=== PATIENT | female | born 2000 | race Two or more races ===

== ENCOUNTER 2024-04-04 10:04 | Inpatient (IN) | payer MEDICAID, SELFPAY ==
[2024-04-04] VITALS (22 sets, daily range): BP systolic 99–148; BP diastolic 56–82; PULSE 63–101; RESP 16–21; TEMP 36.4–37.5; O2SAT 98–100; BMI 29.1
--- NOTE | 2024-04-04 07:47 | ESHP_ITS ---
RE: RUKHSANA BENDER : 2000 DATE OF ADMISSION: 04/04/2024 HISTORY OF PRESENT ILLNESS: This is a 23-year-old 2 para 1-0-0-1 with intrauterine at 39 weeks and 1 day on 04/04/2024, who presents for repeat delivery. The patient denies any leaking or bleeding. She reports normal movement. Her care was complicated by a short interpregnancy interval as well as chlamydia infection in 10/2023. ALLERGIES: NO KNOWN DRUG ALLERGIES. MEDICATIONS: * multivitamin 1 p.o. daily. * Ferrous sulfate 325 mg 1 p.o. b.i.d. PAST MEDICAL HISTORY: Pyelonephritis in her prior at 39 weeks, chlamydia cervicitis in 10/2023. SOCIAL HISTORY: She denies any alcohol, drug use or smoking. FAMILY HISTORY: Denies. OBSTETRIC HISTORY: 01/12/2023, 40 weeks, delivery, 6 pound 10 ounce male, no complications. REVIEW OF SYSTEMS: She denies any chest pain, palpitations, cough, fever, shortness of breath or lower extremity pain. PHYSICAL EXAMINATION: VITAL SIGNS: Blood pressure 127/70, heart rate 88, respirations 18, temperature 98.2, and weight 168 pounds. HEENT: Oropharynx and sclerae are clear. LUNGS: Clear to auscultation bilaterally. HEART: Regular rate and rhythm. ABDOMEN: Gravid term size. Old Pfannenstiel scar noted. EXTREMITIES: Nontender. SKIN: No gross rashes or lesions. NEUROLOGIC: No focal deficits. ASSESSMENT: Intrauterine at 39 weeks and 1 day, previous delivery, elects repeat delivery. PLAN: Repeat delivery. Informed consent was obtained. The patient was made aware of the risks, complications, alternatives, and benefits of the proposed procedure and she agrees. DT: 12:19:18 TT: 15:45:00 Ref: [id number] - TID: [id number] MTDD
[2024-04-04 11:01] LABS: Basophils % (Auto) 0 % (0-2.5); Eosinophils % (Auto) 1 % (0-10); Hematocrit 30.7 % (36.0-46.0); Hemoglobin 9.6 g/dL (12.0-16.0); Immature Granulocytes % (Auto) 0 % (0-0); Immature Granulocytes Auto 0.02 Thou/mm3 (0.00-0.00); Lymphocytes # (Auto) 2.2 Thou/mm3 (1.0-4.8); Lymphocytes % (Auto) 31 % (10-50); Mean Corpuscular HGB Conc 31.3 g/dl (31.0-37.0); Mean Corpuscular Hemoglobin 22.6 pg (25.0-35.0); Mean Corpuscular Volume 72 fL (80-100); Monocytes # (Auto) 0.5 Thou/mm3 (0.0-0.8); Monocytes % (Auto) 7 % (0-12); Neutrophils # (Auto) 4.3 Thou/mm3 (1.8-7.7); Neutrophils % (Auto) 61 % (37-80); Nucleated Red Blood Cell % 0 /100 WBC (0); Platelet Count 296 Thou/mm3 (140-440); RDW Standard Deviation 46.8 fL (36.4-46.3); Red Blood Count 4.24 Miln/mm3 (4.00-5.20); White Blood Count 7.1 Thou/mm3 (3.6-11.0)
[2024-04-04 11:46] LABS: Syphilis Nonreactive (Nonreactive)
[2024-04-04] MEDS: ceFAZolin/D5W 2 GM IV 2 GM/100 ML BAG IV (12:13)
[2024-04-04] MEDS: FAMOTIDINE INJ 10 MG/ML VIAL 2 ML 20 MG IV (12:13)
[2024-04-04] MEDS: CITRIC ACID/SODIUM CITR 15 ML UDC (BICITRA) 30 ML PO (12:13)
--- NOTE | 2024-04-04 13:24 | PD.LDDS ---
DS: Providers Provider Date of admission: 04/04/24 10:04 Primary care physician: Andrzej Larson MD Admitting Provider: Kahlil Arguelles MD Attending Provider on Admission: Kahlil Arguelles MD Attending Provider on DC: Kahlil Arguelles MD Discharging Provider: Kahlil Arguelles MD DS: Diagnosis Problem List Completed Was Problem List Reviewed/Reconciled?: Yes Summary/Hosp Course Peripartum Data Procedures: Procedures Operation Date: 04/04/24 12:45 <No data on this case meets the specified criteria> Time Spent with Patient Time attestation: Total time spent providing and/or coordinating discharge services: Exam Vital Signs Temp Pulse Resp BP Pulse Ox 98.3 F 94 16 111/80 98 04/04/24 10:21 04/04/24 12:20 04/04/24 10:21 04/04/24 12:20 04/04/24 10:21 Discharge Plan Plan Patient Disposition: HOME (Self Care) Patient condition on transfer: Stable Prescriptions/Referrals Prescriptions/Med Rec: No Action ibuprofen 600 mg tablet 600 mg PO Q6H PRN (Reason: pain) Qty: 30 0RF cefpodoxime 200 mg tablet 200 mg PO BID Qty: 10 0RF Rx Instructions: must administer with a meal/food hydrocodone-acetaminophen 5-325 mg tablet 1 tab PO Q6H MDD 4 PRN (Reason: pain) Qty: 20 0RF ferrous sulfate 325 mg (65 mg iron) tablet 325 mg PO BID Qty: 60 1RF vit-iron fum-folic ac [ Vitamin with Minerals] 28 mg iron- 800 mcg Tablet 1 tab PO QDAY Referrals: Andrzej Larson MD [Primary Care Provider] - Patient/Caregiver Discharge Instructions Discharge Activity: activity as tolerated Other Discharge Activity Instructions:: Follow up office 1 weeks. Education Materials: C Section Dc Print Language: Malawian Stand Alone Forms: Saskia Award Info., Patient Portal Info Letter Planned Discharge Date 04/06/24
[2024-04-04] MEDS: OXYTOCIN in NS 20 units 20 UNIT/1,000 ML BAG 125 UNIT IV ×2 (13:45→23:11)
[2024-04-04] MEDS: ONDANSETRON INJ 2 MG/ML INJ 2 ML 4 MG IV (15:20)
[2024-04-04 19:02] LABS: Basophils % (Auto) 0 % (0-2.5); Eosinophils % (Auto) 0 % (0-10); Hematocrit 29.5 % (36.0-46.0); Hemoglobin 9.2 g/dL (12.0-16.0); Immature Granulocytes % (Auto) 0 % (0-0); Immature Granulocytes Auto 0.06 Thou/mm3 (0.00-0.00); Lymphocytes # (Auto) 0.9 Thou/mm3 (1.0-4.8); Lymphocytes % (Auto) 6 % (10-50); Mean Corpuscular HGB Conc 31.2 g/dl (31.0-37.0); Mean Corpuscular Hemoglobin 22.5 pg (25.0-35.0); Mean Corpuscular Volume 72 fL (80-100); Monocytes # (Auto) 0.1 Thou/mm3 (0.0-0.8); Monocytes % (Auto) 1 % (0-12); Neutrophils # (Auto) 12.4 Thou/mm3 (1.8-7.7); Neutrophils % (Auto) 92 % (37-80); Nucleated Red Blood Cell % 0 /100 WBC (0); Platelet Count 265 Thou/mm3 (140-440); RDW Standard Deviation 47.3 fL (36.4-46.3); Red Blood Count 4.08 Miln/mm3 (4.00-5.20); White Blood Count 13.4 Thou/mm3 (3.6-11.0)
[2024-04-04] MEDS: SODIUM CHLORIDE 0.9% 500 ML 500 ML 999 ML IV (19:13)
--- NOTE | 2024-04-04 19:21 | PD.LDDELS ---
Data (Johnson) Data : 2 Para: 1 Term: 1 : 0 : 0 Delivery Data (Johnson) Labor Data ROM Date: 04/04/24 ROM Time: 12:57 Rupture Type: AROM Amniotic Fluid: Clear Delivery Data EDC: 04/10/24 EDC calculated by:: LMP/early US confirmation Labor Onset Stage 1 Date: 04/04/24 Labor Onset Stage 1 Time: 12:57 Labor Onset Stage 2 Date: 04/04/24 Labor Onset Stage 2 Time: 12:57 Delivery Date: 04/04/24 Delivery Time: 12:57 Gestational age (weeks): 39 Gestational age (days): 1 Placenta Delivery Date: 04/04/24 Placenta Delivery Time: 12:58 Delivered by: Kahlil Arguelles Delivery nurse: Beverly Weiner Other staff at delivery: [employer] Other staff at delivery: Anesthesiologist Other staff at delivery: [employer] garay Delivery Method Delivery: Delivery Type: Repeat Presentation: Vertex Position: OA Anesthesia Type Primary Anesthesia: Spinal Delivery Room Medications Other Intrapartum Medications: Yes Placenta Placenta Delivery: Manual Placenta Cultures Obtained: No Placenta Sent for Examination: No Cord Sample: Cord Blood Obtained EBL Estimated blood loss (ml): 700 Umbilical Cord Umbilical Vessels: 3 Nuchal Cord: None Body Cord: None Additional Procedures None Complications Complications: None Data (Johnson) Data Gender: Male Weight Grams: 3225 1 Minute Total: 8 5 Minute Total: 9
--- NOTE | 2024-04-04 21:29 | ESOP_ITS ---
RE: RUKHSANA BENDER : 2000 DATE OF OPERATION: 04/04/2024 PREOPERATIVE DIAGNOSES: Intrauterine at 39 weeks and 1 day. Previous delivery. Elects to repeat delivery. POSTOPERATIVE DIAGNOSES: Intrauterine at 39 weeks and 1 day. Previous delivery. Elects to repeat delivery. Endometriosis. PROCEDURE PERFORMED: Repeat low transverse section via Pfannenstiel skin incision. SURGEON: Kahlil Arguelles DO AUTOMOTIVE REFINISHER: MAXINE Pierre ANESTHESIA: Spinal. ANESTHESIOLOGIST: Skip Patton CRNA ESTIMATED BLOOD LOSS: 700 mL. COMPLICATIONS: None. COUNTS: Correct. PATHOLOGY: None. FINDINGS: A live male , cephalic presentation, clear amniotic fluid, Apgars, see RN notes, placenta removed, completely intact. Superficial endometriotic implants on both ovaries and both posterior uterosacral ligaments. The uterus was initially atonic, but responded to uterotonics. DESCRIPTION OF PROCEDURE: After appropriate informed consent was obtained and the patient was made aware of the risks, complications, alternatives and benefits of the proposed procedure, she was taken to the operating room where she underwent induction of general anesthesia. She was placed in the dorsal supine position. She was prepped and draped in usual sterile fashion. A timeout was performed and a Pfannenstiel skin incision was made with the scalpel, carried through to the underlying layer of fascia with the Bovie. The fascia was nicked in the midline. The incision was extended bilaterally with the scalpel. The Bovie was then used and the subcutaneous tissue was incised and the fascia entered sharply with the Bovie. The fascia was extended bilaterally with the Bovie. The inferior aspect of the fascia incision was grasped with Emilia clamps and elevated. The underlying rectus muscle was dissected off with the Bovie. The superior aspect of the fascial incision was grasped with Emilia clamps and elevated. The underlying rectus muscles were dissected off with the Bovie. The rectus muscles were in the midline. The peritoneum identified between two Sharp clamps and entered sharply with the Metzenbaum scissors. The incision was extended superiorly and inferiorly with good visualization of the bladder. Bladder blade was then inserted. The vesicouterine peritoneum was incised transversely and the bladder flap created digitally. The bladder blade was inserted in the lower uterine segment and incised in a transverse fashion with scalpel. The incision was extended bilaterally digitally. The infant's head delivered. The mouth and nose suctioned with bulb suction. Shoulder and body delivered atraumatically. The cord was clamped and cut. The infant was sent off to awaiting pediatric staff. Cord blood and gases were sent. Placenta was then removed manually. The uterus was exteriorized and cleared of all clots and debris. The uterine incision was repaired with #1-0 chromic catgut suture in a running locking fashion. A second layer of the same suture was used to imbricate the first layer and obtained excellent hemostasis. The vesicouterine peritoneum was closed with 2-0 chromic catgut suture in a running fashion. The muscle was closed with 0 chromic. The fascia was closed with 0 Vicryl beginning at each angle and ending at center in a running fashion. Subcutaneous tissue was irrigated with normal saline solution. The skin was closed with 4-0 Monocryl. A Dermabond Prineo dressing was applied. A sterile pressure dressing was applied. She tolerated the procedure well. Counts were correct. We discussed with the patient the nature of her condition, intraoperative findings, expectations for recovery. All questions answered. DT: 13:30:21 TT: 21:27:00 Ref: [id number] - TID: [id number]
[2024-04-05] MEDS: KETOROLAC INJ 30 MG/ML VIAL IVP ×2 (01:16→15:46)
[2024-04-05 05:24] VITALS: BP 110/73; PULSE 67; RESP 16; TEMP 36.8; O2SAT 97
--- NOTE | 2024-04-05 07:24 | PC.NURSE ---
Dr. Arguelles at bedside, poc explained to pt all questions and concerns addressed.
--- NOTE | 2024-04-05 07:52 | ESPR_ITS ---
RE: RUKHSANA BENDER : 2000 DATE OF SERVICE: 04/05/2024 SUBJECTIVE: Postoperative day #1, the patient denies any problems or complaints. She is voiding. She is ambulating. She is tolerating diet. She is passing flatus. She denies any excessive vaginal bleeding. She denies any dizziness or lightheadedness. She denies any chest pain, palpitations, shortness of breath, or lower extremity pain. She denies any depression or anxiety. OBJECTIVE: Vital Signs: Blood pressure 110/73, heart rate 67, respirations 16, temperature 98.3, pulse oximetry 97% on room air. Lungs: Clear to auscultation bilaterally. Heart: Regular rate and rhythm. Abdomen: Dressing dry and intact. Fundus is firm. Extremities: Nontender. LABORATORY DATA: Hemoglobin pre-delivery is 9.6, post delivery 9.2. ASSESSMENT: Postoperative day #1, status post delivery. PLAN: Remove dressing, discontinue IV, encourage ambulation, support, possible discharge home tomorrow. DT: 07:27:43 TT: 07:51:00 Ref: [id number] - TID: [id number]
[2024-04-05 08:12] VITALS: BP 111/68; PULSE 78; RESP 18; TEMP 36.8; O2SAT 99
[2024-04-05 11:30] VITALS: BP 100/67; PULSE 74; RESP 16; TEMP 36.8; O2SAT 99
[2024-04-05 15:30] VITALS: BP 95/57; PULSE 81; RESP 18; TEMP 36.8; O2SAT 99
[2024-04-05 20:18] VITALS: BP 109/69; PULSE 87; RESP 18; TEMP 36.8; O2SAT 97
[2024-04-06] VITALS: BP 109/70; PULSE 87; RESP 16; TEMP 36.8; O2SAT 98
[2024-04-06] MEDS: HYDROcodone/APAP 5/325 TABLET 1 TAB PO (04:40)
[2024-04-06] MEDS: Milk Of Magnesia Susp 30 ML UDC PO (04:40)
--- NOTE | 2024-04-06 04:41 | ESPR_ITS ---
RE: RUKHSANA BENDER : 2000 DATE OF SERVICE: 04/06/2024 S: Postoperative day #2, the patient denies any problem or complaints. She is voiding, ambulating, tolerating diet, passing flatus. O: Vital Signs: Blood pressure 109/70, heart rate 87, respirations 16, temperature is 99.2, pulse oximetry 98% on room air. Lungs: Clear to auscultation bilaterally. Heart: Regular rate and rhythm. Abdomen: Incision clear and intact. Fundus is firm. Extremities: Nontender. A: 1. Postoperative day #2, status post delivery. 2. Anemia, but hemodynamically stable. P: Discharge home with iron. Follow up in the office in 1 week. Discharge instructions given. DT: 04:22:40 TT: 04:40:00 Ref: [id number] - TID: [id number]
[2024-04-06 08:20] VITALS: BP 102/68; PULSE 89; RESP 17; TEMP 36.9; O2SAT 97
[2024-04-06] MEDS: DIPHTH,PERTUSS(ACELL),TET VAC 0.5 ML VIAL IMi (11:01)
== END 2024-04-06 12:40 | disposition home or self-care (01) | DRG 540 ==
LOC: S4SX 11:08 → S4NX 12:50
PROVIDERS: Admitting Provider Specialist; PCP Family Medicine; Visit Provider Specialist
PROC: 10D00Z1 Extraction of Products of Conception, Low, Open Approach (ICD-10-PCS; CPT 59514; principal; 2024-04-04 12:30)
DX: O34.211 Maternal care for low transverse scar from previous cesarean delivery (principal); Z37.0 Single live birth; Z3A.39 39 weeks gestation of pregnancy; Z23 Encounter for immunization; O62.2 Other uterine inertia; N80.113 Superficial endometriosis of bilateral ovaries; N80.3A3 Superficial endometriosis of the bilateral uterosacral ligament(s); O34.83 Maternal care for other abnormalities of pelvic organs, third trimester; O90.81 Anemia of the puerperium
CPT/HCPCS: 36415; 85025; 86780; 86850; 86900; 86901; 90715; A4649; J0689; J1100; J1885; J2274; J2371; J2405; J2590; J3010; J3490; J7040; A9270; J0690; J2270